=== PATIENT | female | born 1945 | race Caucasian/White ===

== ENCOUNTER 2022-05-28 08:26 | Emergency (ER) | payer MEDICARE, OTHER ==
[~2022-05-28] VITALS: Ht 157.4 cm; Wt 58.0 kg
[2022-05-28 09:19] LABS: BASOPHILS # (AUTO) 0.1 10^3/uL (0.0-0.1); BASOPHILS % (AUTO) 1 % (0-10); EOSINOPHILS # (AUTO) 0.1 10^3/uL (0.0-0.3); EOSINOPHILS % (AUTO) 1 % (0-10); HEMATOCRIT 40 % (35-52); HEMOGLOBIN 13.5 g/dL (11.5-16.0); LYMPHOCYTES # (AUTO) 2.3 10^3/uL (1.0-4.0); LYMPHOCYTES % (AUTO) 25 % (12-44); MEAN CORPUSCULAR HEMOGLOBIN 32 pg (25-34); MEAN CORPUSCULAR HGB CONC 33 g/dL (32-36); MEAN CORPUSCULAR VOLUME 95 fL (80-99); MEAN PLATELET VOLUME 10.4 fL (9.0-12.2); MONOCYTES # (AUTO) 0.7 10^3/uL (0.0-1.0); MONOCYTES % (AUTO) 8 % (0-12); NEUTROPHILS # (AUTO) 5.9 10^3/uL (1.8-7.8); NEUTROPHILS % (AUTO) 64 % (42-75); PLATELET COUNT 286 10^3/uL (130-400); WHITE BLOOD COUNT 9.2 10^3/uL (4.3-11.0)
[2022-05-28 09:35] LABS: ALBUMIN 3.9 GM/DL (3.2-4.5); POTASSIUM 3.9 MMOL/L (3.6-5.0)
[2022-05-28 09:36] LABS: CALCIUM 9.2 MG/DL (8.5-10.1)
[2022-05-28 09:37] LABS: TOTAL PROTEIN 6.7 GM/DL (6.4-8.2)
[2022-05-28 09:39] LABS: BILIRUBIN,TOTAL 0.3 MG/DL (0.1-1.0); PROTHROMBIN TIME PATIENT 13.7 SEC (12.2-14.7)
[2022-05-28 09:41] LABS: CREATININE SERUM 0.66 MG/DL (0.60-1.30)
--- NOTE | 2022-05-28 09:51 | ED Abdominal Pain ---
General Chief Complaint: Abdominal/GI Problems Stated Complaint: GI BLEED Nursing Triage Note: REPORTS THIS AM SHE HAD PAINFUL GAS AND BRIGHT RED BLOOD IN HER STOOL. Source of Information: Patient Exam Limitations: No Limitations History of Present Illness Date Seen by Provider: May 28, 2022 Time Seen by Provider: 08:28 Initial Comments This 77-year-old woman presents to the emergency room via EMS from [facility] where she experienced sudden onset of explosive gas with bright red blood per rectum while sitting on the toilet. She has since been e xperiencing generalized tenderness and pain in the abdomen. She reports having a normal colonoscopy about a year ago. She denies any history of diverticulitis. She takes Plavix due to history of stroke. 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 She is hypertensive with blood pressure of 185/75 for EMS. Allergies and Home Medications Allergies Coded Allergies: blue dye (Verified Allergy, Severe, 05/28/22) Patient Home Medication List Home Medication List Reviewed: Yes Ciprofloxacin HCl (Ciprofloxacin HCl) 500 Mg Tablet, 500 MG PO BID Prescribed by: LENY WELSH on 05/28/22 1144 Metronidazole (Metronidazole) 500 Mg Tablet, 500 MG PO QID Prescribed by: LENY WELSH on 05/28/22 1144 Review of Systems Review of Systems Constitutional: no symptoms reported EENTM: No Symptoms Reported Respiratory: No Symptoms Reported Cardiovascular: See HPI Gastrointestinal: See HPI Genitourinary: No Symptoms Reported Musculoskeletal: no symptoms reported Skin: no symptoms reported Psychiatric/Neurological: No Symptoms Reported Endocrine: No Symptoms Reported Hematologic/Lymphatic: See HPI Past Eohzgsx-Zxutbx-Twgzbo Hx Patient Social History Tobacco Use?: Yes Tobacco type used: Cigarettes Smoking Status: Current Everyday Smoker Use of E-Cig and/or Vaping dev: No Substance use?: No Alcohol Use?: No Pt feels they are or have been: No Immunizations Up To Date First/Initial COVID19 Vaccinat: YES Second COVID19 Vaccination [place]: YES Past Medical History Surgeries: Yes Vascular Surgery (Carotid endarterectomy) Respiratory: Yes COPD Cardiac: Yes Hypertension Neurological: Yes Stroke Reproductive Disorders: No Genitourinary: No Gastrointestinal: No Musculoskeletal: No Endocrine: No HEENT: No Cancer: No Psychosocial: No Integumentary: No Physical Exam Vital Signs Vital Signs - First Documented 05/28/22 08:32 Temp 36.6 Pulse 86 Resp 18 B/P (MAP) 130/89 (103) Pulse Ox 99 O2 Delivery Room Air Capillary Refill : Less Than 3 Seconds Height/Weight/BMI Height: '" Weight: lbs. oz. kg; 23.00 BMI Method: General Appearance: WD/WN, no apparent distress HEENT: PERRL/EOMI, normal ENT inspection Neck: normal inspection Respiratory: lungs clear, normal breath sounds, no respiratory distress Cardiovascular: regular rate, rhythm, no edema, no murmur Gastrointestinal: normal bowel sounds, soft; No distended; tenderness (Generalized) Extremities: other (Partial paralysis of the left extremities. Mild edema of the left upper extremity. Muscle contractures.) Neurologic/Psychiatric: alert, normal mood/affect, oriented x 3 Skin: normal color, warm/dry Progress/Results/Core Measures Results/Orders Lab Results Laboratory Tests Test 05/28/22 09:10 05/28/22 10:24 Range/Units White Blood Count 9.2 4.3-11.0 10^3/uL Red Blood Count 4.25 3.80-5.11 10^6/uL Hemoglobin 13.5 11.5-16.0 g/dL Hematocrit 40 35-52 % Mean Corpuscular Volume 95 80-99 fL Mean Corpuscular Hemoglobin 32 25-34 pg Mean Corpuscular Hemoglobin Concent 33 32-36 g/dL Red Cell Distribution Width 12.2 10.0-14.5 % Platelet Count 286 130-400 10^3/uL Mean Platelet Volume 10.4 9.0-12.2 fL Immature Granulocyte % (Auto) 1 % Neutrophils (%) (Auto) 64 42-75 % Lymphocytes (%) (Auto) 25 12-44 % Monocytes (%) (Auto) 8 0-12 % Eosinophils (%) (Auto) 1 0-10 % Basophils (%) (Auto) 1 0-10 % Neutrophils # (Auto) 5.9 1.8-7.8 10^3/uL Lymphocytes # (Auto) 2.3 1.0-4.0 10^3/uL Monocytes # (Auto) 0.7 0.0-1.0 10^3/uL Eosinophils # (Auto) 0.1 0.0-0.3 10^3/uL Basophils # (Auto) 0.1 0.0-0.1 10^3/uL Immature Granulocyte # (Auto) 0.1 0.0-0.1 10^3/uL Prothrombin Time 13.7 12.2-14.7 SEC INR Comment 1.0 0.8-1.4 Activated Partial Thromboplast Time 35 24-35 SEC Sodium Level 139 135-145 MMOL/L Potassium Level 3.9 3.6-5.0 MMOL/L Chloride Level 110 H 98-107 MMOL/L Carbon Dioxide Level 20 L 21-32 MMOL/L Anion Gap 9 5-14 MMOL/L Blood Urea Nitrogen 18 7-18 MG/DL Creatinine 0.66 0.60-1.30 MG/DL Estimat Glomerular Filtration Rate 91 BUN/Creatinine Ratio 27 Glucose Level 111 H 70-105 MG/DL Calcium Level 9.2 8.5-10.1 MG/DL Corrected Calcium 9.3 8.5-10.1 MG/DL Total Bilirubin 0.3 0.1-1.0 MG/DL Aspartate Amino Transf (AST/SGOT) 15 5-34 U/L Alanine Aminotransferase (ALT/SGPT) 12 0-55 U/L Alkaline Phosphatase 55 40-136 U/L C-Reactive Protein High Sensitivity 0.30 0.00-0.50 MG/DL Total Protein 6.7 6.4-8.2 GM/DL Albumin 3.9 3.2-4.5 GM/DL Lipase 39 8-78 U/L Urine Color YELLOW Urine Clarity CLEAR Urine pH 6.0 5-9 Urine Specific [place] 1.025 H 1.016-1.022 Urine Protein NEGATIVE NEGATIVE Urine Glucose (UA) NEGATIVE NEGATIVE Urine Ketones NEGATIVE NEGATIVE Urine Nitrite NEGATIVE NEGATIVE Urine Bilirubin NEGATIVE NEGATIVE Urine Urobilinogen 0.2 < = 1.0 MG/DL Urine Leukocyte Esterase 2+ H NEGATIVE Urine RBC (Auto) NEGATIVE NEGATIVE Urine RBC NONE /HPF Urine WBC 10-25 H /HPF Urine Squamous Epithelial Cells 2-5 /HPF Urine Crystals NONE /LPF Urine Bacteria NEGATIVE /HPF Urine Casts NONE /LPF Urine Mucus NEGATIVE /LPF Urine Culture Indicated YES Micro Results Microbiology 05/28/22 Urine Culture - Final, Complete NO GROWTH My Orders Orders - LENY CANAS MD Cbc With Automated Diff (05/28/22 09:07) Comprehensive Metabolic Panel (05/28/22 09:07) Hs C Reactive Protein (05/28/22 09:07) Lipase (05/28/22 09:07) Protime With Inr (05/28/22 09:07) Partial Thromboplastin Time (05/28/22 09:07) Ua Culture If Indicated (05/28/22 09:07) Ed Iv/Invasive Line Start (05/28/22 09:07) Ct Abdomen/Pelvis W (05/28/22 10:13) Iohexol Injection (Omnipaque 350 Mg/Ml 1 (05/28/22 10:30) Received Contrast (Hold Metformin- Contr (05/28/22 10:30) Sodium Chloride Flush (Catheter Flush Sy (05/28/22 10:30) Ns (Ivpb) (Sodium Chloride 0.9% Ivpb Bag (05/28/22 10:30) Urine Culture (05/28/22 10:24) Medications Given in ED Vital Signs/I&O 05/28/22 05/28/22 08:32 13:12 Temp 36.6 Pulse 86 69 Resp 18 18 B/P (MAP) 130/89 (103) 135/64 Pulse Ox 99 97 O2 Delivery Room Air Room Air Blood Pressure Mean: 103 Progress Progress Note : Progress Note Labs were unremarkable except for incidental finding of urinary tract infection. Exact cause of her rectal bleeding is uncertain but may be related to diverticular disease and Plavix use. There was incidental finding of peripheral vascular disease on the CT scan that is likely noncontributory. Discharge instructions reviewed with patient and longterm staff. See discharge instructions for further discussion. I did call and leave a message at Dr. Wells's office regarding the peripheral vascular disease and incidental findings. Diagnostic Imaging Diagonstic Imaging: CT Plain Films/CT/US/NM/MRI: abdomen, pelvis Comments CT scan viewed by me and report reviewed. See report below: NAME: ANSON VALER[facility] REC#: [id number] PT STATUS: REG ER : 1945 PHYSICIAN: LENY CANAS MD ADMIT DATE: 05/28/22/ER Draft Date of Exam:05/28/22 CT ABDOMEN/PELVIS W EXAMINATION: CT abdomen and pelvis with intravenous contrast. TECHNIQUE: Multiple contiguous axial images were obtained through the abdomen and pelvis after the uneventful administration of intravenous contrast. All CT scans use one or more of the following dose optimizing techniques: automated exposure control, MA and/or KvP adjustment based on patient size and exam type or iterative reconstruction. HISTORY: Abdominal pain COMPARISON: None available. FINDINGS: Limited views of the lower thorax are unremarkable. The liver is normal without focal lesion. There is no biliary ductal dilation. Gallbladder is surgically absent. Pancreas is normal. Spleen is normal. Adrenal glands are normal. The kidneys are normal. There is no hydronephrosis. Urinary bladder is normal. Bowel is normal in caliber without obstruction or inflammation. There is diverticulosis without diverticulitis. No free fluid or air. No abdominal or pelvic lymphadenopathy. Aorta is atherosclerotic. There is narrowing of the infrarenal aorta. The right superficial femoral artery is occluded. Left common femoral artery appears to be occluded. There are no suspicious osseus lesions. There is a left hip arthroplasty. There is a mild chronic appearing T11 compression fracture. IMPRESSION: 1. No acute bowel abnormality. 2. Occluded right superficial femoral artery and left common femoral artery. Dictated on workstation # [id number] Dict: 05/28/22 1051 Trans: 05/28/22 1057 [facility] [id number] Interpreted by: PIPPA LONDONO MD Departure Impression Primary Impression: Rectal bleeding Additional Impressions: Abdominal pain Qualified Codes: R10.84 - Generalized abdominal pain Urinary tract infection Qualified Codes: N39.0 - Urinary tract infection, site not specified Diverticulosis Peripheral vascular disease Disposition: 01 HOME, SELF-CARE Condition: Improved Departure-Patient Inst. Decision time for Depature: 11:40 Referrals: PIPPA WELLS MD (PCP/Family) Primary Care Physician Patient Instructions: Abdominal Pain, Adult ED, Diverticulosis, Urinary Tract Infection, Adult ED Add. Discharge Instructions: Adhere to a noncarbonated clear liquid diet for the rest of today. If you are improved in the morning, gradually advance her diet with small quantities of bland food as tolerated. Avoid dairy products. Drink plenty of clear liquids to stay well-hydrated. Skip your next dose of Plavix. Then resume as previously directed after you skip 1 dose. You may take Tylenol (acetaminophen) up to 1000 mg every 6 hours as needed for pain. Complete your antibiotics as prescribed. Follow-up with your primary care provider next week. Review urine culture results at that time. Return to the emergency room if you have worsening symptoms despite following these instructions. You may expect some minor bleeding or passage of dark stool over the next few days. However, if you have large amounts of bright red blood, please return to the emergency room promptly. Also return to the emergency room if you develop fever or other significant new symptoms. All discharge instructions reviewed with patient and/or family. Voiced understanding. Scripts Metronidazole (Metronidazole) 500 Mg Tablet 500 MG PO QID, #28 TAB Prov: LENY CANAS MD 05/28/22 Ciprofloxacin HCl (Ciprofloxacin HCl) 500 Mg Tablet 500 MG PO BID, #14 TAB Prov: LENY CANAS MD 05/28/22 LENY CANAS MD May 28, 2022 09:51
[2022-05-28] MEDS ORDERED: HOLD METFORMIN - RECEIVED CONTRAST 20 ML VIAL IV SCH (10:30)
[2022-05-28] MEDS ORDERED: NS 100 ML (IVPB) BAG IV ONE (10:30)
[2022-05-28] MEDS ORDERED: CATHETER FLUSH 10 ML SYR IV PRN (10:30)
[2022-05-28] MEDS ORDERED: IOHEXOL 350 MG/ML 100 ML (OMNIPAQUE 350) VIAL IV ONE (10:30)
[2022-05-28 10:32] LABS: BILIRUBIN,URINE NEGATIVE (NEGATIVE); CLARITY,URINE CLEAR; COLOR,URINE YELLOW; GLUCOSE, URINE (UA) NEGATIVE (NEGATIVE); KETONES,URINE NEGATIVE (NEGATIVE); LEUKOCYTE ESTERASE ,URINE 2+ (NEGATIVE); NITRITE,URINE NEGATIVE (NEGATIVE); PROTEIN,URINE NEGATIVE (NEGATIVE)
[2022-05-28 10:52] LABS: BACTERIA,URINE NEGATIVE /HPF
--- NOTE | 2022-05-28 10:57 | Diagnostic Imaging Report ---
EXAMINATION: CT abdomen and pelvis with intravenous contrast. TECHNIQUE: Multiple contiguous axial images were obtained through the abdomen and pelvis after the uneventful administration of intravenous contrast. All CT scans use one or more of the following dose optimizing techniques: automated exposure control, MA and/or KvP adjustment based on patient size and exam type or iterative reconstruction. HISTORY: Abdominal pain COMPARISON: None available. FINDINGS: Limited views of the lower thorax are unremarkable. The liver is normal without focal lesion. There is no biliary ductal dilation. Gallbladder is surgically absent. Pancreas is normal. Spleen is normal. Adrenal glands are normal. The kidneys are normal. There is no hydronephrosis. Urinary bladder is normal. Bowel is normal in caliber without obstruction or inflammation. There is diverticulosis without diverticulitis. No free fluid or air. No abdominal or pelvic lymphadenopathy. Aorta is atherosclerotic. There is narrowing of the infrarenal aorta. The right superficial femoral artery is occluded. Left common femoral artery appears to be occluded. There are no suspicious osseus lesions. There is a left hip arthroplasty. There is a mild chronic appearing T11 compression fracture. IMPRESSION: 1. No acute bowel abnormality. 2. Occluded right superficial femoral artery and left common femoral artery. Dictated by: Dictated on workstation # [id number]
[2022-05-28] MEDS ORDERED: CIPR500T5 PO (11:44)
[2022-05-28] MEDS ORDERED: METR-145 PO (11:44)
[2022-05-28 13:12] VITALS: BP 135/64
== END 2022-05-28 13:12 | disposition home or self-care (01) ==
LOC: ER 08:28
DX: N39.0 Urinary tract infection, site not specified (principal); K57.90 Diverticulosis of intestine, part unspecified, without perforation or abscess without bleeding; K62.5 Hemorrhage of anus and rectum; I73.9 Peripheral vascular disease, unspecified; F17.210 Nicotine dependence, cigarettes, uncomplicated
CPT/HCPCS: 36415; 74177; 80053; 81000; 83690; 85025; 85610; 85730; 86141; 87088